=== PATIENT | female | born 1970 | race African-American/Black ===

== ENCOUNTER → 2017-03-21 | Outpatient (CLI) | payer BC ==
--- NOTE | 2017-03-21 10:41 | Diagnostic Imaging Report ---
PROCEDURE:US PELVIS COMPLETE NON OB COMPARISON:None. INDICATIONS:OVARIAN MASS LEFT AND RIGHT CONCLUSION: Please refer to "US TRANSVAGINAL" performed at the same date and time for full dictated report. Dictated by: Kadeem Hays M.D. on 03/21/2017 at 10:49 Electronically approved by: Kadeem Hays M.D. on 03/21/2017 at 10:49
--- NOTE | 2017-03-21 10:41 | Diagnostic Imaging Report ---
PROCEDURE:TRANSVAGINAL ULTRASOUND COMPARISON:Pelvic CT 08/24/2010. INDICATIONS:OVARIAN MASS LEFT AND RIGHT TECHNIQUE: Grayscale transverse and sagittal transabdominal and transvaginal images were obtained of the pelvis. Transvaginal imaging was medically necessary to better evaluate the adnexa. FINDINGS: UTERUS: Surgically removed. RIGHT OVARY: 7.2 x 6.2 x 7.6 cm complex septated cystic lesion in the right adnexa. LEFT OVARY: Not visualized. No left adnexal mass. There is no free fluid within the pelvis. No adnexal masses. CONCLUSION: 7.6 cm multiseptated cystic lesion in the right adnexa has not significantly changed in size compared to prior CT when accounting for differences in technique. Differential diagnosis includes cystic ovarian neoplasm and chronic hydrosalpinx. Status post hysterectomy. Dictated by: Kadeem Hays M.D. on 03/21/2017 at 10:49 Electronically approved by: Kadeem Hays M.D. on 03/21/2017 at 10:49
== END ==
LOC: US 09:19
PROVIDERS: ATTEND Specialist
DX: N83.9 Noninflammatory disorder of ovary, fallopian tube and broad ligament, unspecified (principal)
CPT/HCPCS: 76830; 76856